=== PATIENT | male | born 2000 | race Caucasian/White ===

== ENCOUNTER 2024-11-06 09:30 | Emergency (ER) | payer MEDICAID ==
[~2024-11-06] VITALS: Ht 185.4 cm; Wt 81.0 kg
[~2024-11-06 09:30] MED LIST: KEP500T PO; OLAN-38 PO
[2024-11-06 09:37] VITALS: BP 110/44; PULSE 113; RESP 17; TEMP 98.7; O2SAT 97
--- NOTE | 2024-11-06 09:48 | Physician Documentation ---
History of Present Illness ~ General Chief Complaint: Multiple Medical Complaints Stated Complaint: AISHWARYA REDDY Time Seen by MD: 09:48 History of Present Illness Initial Comments 24 yr old male [facility] asking to be placed on a hold. Denied suicidal or homicidal ideation. Requesting med refills and food. Medication Reconciliation Allergies: Coded Allergies: No Known Allergies (Unverified , 10/23/24) Scheduled Levetiracetam (Levetiracetam), 1 TAB PO BID, (Reported) Levetiracetam (Keppra), 1 TAB PO BID Olanzapine (Olanzapine), 1 TAB PO BID, (Reported) Olanzapine (Olanzapine), 1 TAB PO BID Scheduled PRN Hydroxyzine Pamoate (Hydroxyzine Pamoate), 1 CAP PO BID PRN for anxiety Past Medical History Patient History: Patient reports no known family medical history. Review of Systems ROS As stated above in the HPI, otherwise all systems are reviewed and negative. Physical Exam Physical Exam Vital Signs: Temperature: 98.7, Source: Oral, Heart Rate: 113, Respiratory Rate: 17, BP: 110/44, Pulse Oximetry: 97, Weight: 81.000 Physical Exam General: Alert, no apparent distress. Neck: Full range of motion. Respiratory: Lungs clear, no respiratory distress. Chest: No accessory muscle use. Cardiovascular: Regular rate and rhythm, no murmurs. Gastrointestinal: Soft, nontender, nondistended. Bowels sounds present. Extremities: Normal range of motion, no deformity. Neurologic: Oriented x4. Psychiatric: Normal mood and affect. Skin: Normal color, warm and dry. No edema, no ecchymosis. Progress Results/Orders Results/Orders Vital Signs 11/06/24 09:37 Temp 98.7 Pulse 113 Resp 17 B/P (MAP) 110/44 Pulse Ox 97 Medical Decision Making Differential Diagnosis Well appearing, no suicidal or homicidal ideation reported. Medications refilled. Appropriate for discharge. Departure Time of Disposition: 09:48 Disposition: 01 HOME / SELF CARE / HOMELESS Impression: Primary Impression: Psychotic disorder due to psychoactive substance Condition: Stable Referrals: NO PRIMARY CARE PROVIDER (PCP) Prescriptions Hydroxyzine Pamoate (Hydroxyzine Pamoate) 50 Mg Capsule 1 CAP PO BID PRN for anxiety for 14 Days, #28 CAP Prov: JONAH CHOUDHARY CONTENT SPECIALIST 11/06/24 Levetiracetam (Keppra) 500 Mg Tablet 1 TAB PO BID for 30 Days, #60 TAB Prov: JONAH CHOUDHARY NP 11/06/24 Olanzapine (Olanzapine) 10 Mg Tablet 1 TAB PO BID for 30 Days, #60 TAB Prov: JONAH CHOUDHARY NP 11/06/24 Education Educated: Patient Educated regarding: diagnosis, treatment, prognosis, need for follow up Signature Scribe Signature: x Attestation: The note accurately reflects work and decisions made by me.Jonah Zazueta NP 11/06/24 10:01 JONAH CHOUDHARY NP Nov 06, 2024 09:48
[2024-11-06] MEDS ORDERED: HYDR50CA5 PO ×2 (09:49→09:50)
[2024-11-06] MEDS ORDERED: OLAN10TA73 PO (09:49)
[2024-11-06] MEDS ORDERED: LEVE500T PO (09:49)
[2024-11-06] MEDS ORDERED: KEP500T PO (09:50)
[2024-11-06] MEDS ORDERED: OLAN-38 PO (09:50)
== END 2024-11-06 09:58 | disposition home or self-care (01) ==
LOC: ER 09:31
DX: F29 Unspecified psychosis not due to a substance or known physiological condition (principal)
CPT/HCPCS: 99283